=== PATIENT | female | born 1990 | race African-American/Black ===

== ENCOUNTER 2024-02-20 08:26 | Emergency (ER) | payer MEDICARE ==
[~2024-02-20] VITALS: Ht 152.4 cm; Wt 50.0 kg
[2024-02-20 08:33] VITALS: O2SAT 100
[2024-02-20] MEDS ORDERED: MELA5TAB19 MT (08:54)
[2024-02-20] MEDS ORDERED: DIPH25CA83 MT (08:54)
[2024-02-20 11:56] VITALS: BP 118/78; PULSE 79; RESP 18; TEMP 98.6
== END 2024-02-20 11:57 | disposition home or self-care (01) ==
LOC: ER 08:26
DX: G47.09 Other insomnia (principal); F31.9 Bipolar disorder, unspecified; Z98.890 Other specified postprocedural states
CPT/HCPCS: 99282